=== PATIENT | female | born 1990 | race Caucasian/White ===

== ENCOUNTER → 2021-03-20 | Outpatient (CLI) | payer OTHER, MEDICAID | LOC: RAD 13:49 | DX: J90 Pleural effusion, not elsewhere classified (principal); R10.9 Unspecified abdominal pain; Z90.89 Acquired absence of other organs | CPT/HCPCS: Q9967 ==

== ENCOUNTER → 2021-04-25 | Outpatient (CLI) | payer OTHER, MEDICAID | LOC: RAD 08:29 | DX: G89.18 Other acute postprocedural pain (principal) ==